=== PATIENT | male | born 1990 | race Caucasian/White ===

== ENCOUNTER 2025-03-24 06:29 | Emergency (ER) | payer SELFPAY ==
[~2025-03-24] VITALS: Ht 190.5 cm; Wt 86.2 kg
[2025-03-24] MEDS ORDERED: LIDO30AD10 TP (07:44)
[2025-03-24] MEDS ORDERED: GABA-532 PO (07:44)
[2025-03-24] MEDS ORDERED: HYDR-4303 PO (07:44)
[2025-03-24] MEDS ORDERED: CYCL5TAB PO (07:44)
[2025-03-24] MEDS: LIDOCAINE 5% (PATCH) 1 EA PATCH TP STA (07:45)
[2025-03-24] MEDS ORDERED: HYDROCODONE/APAP 5/325MG TABLET ONE (07:49)
[2025-03-24] MEDS ORDERED: LIDOCAINE 5% (PATCH) 1 EA PATCH TP ONE (07:49)
[2025-03-24] MEDS: HYDROCODONE/APAP 5/325MG TABLET PO ONE (08:00)
[2025-03-24 08:08] VITALS: BP 125/66; TEMP 98; O2SAT 99
== END 2025-03-24 08:09 | disposition home or self-care (01) ==
LOC: ER 06:39
DX: M54.12 Radiculopathy, cervical region (principal); M79.601 Pain in right arm